=== PATIENT | female | born 1990 | race Caucasian/White ===

== ENCOUNTER 2017-10-06 06:31 | Day surgery (SDC) | payer OTHER ==
[2017-10-06] VITALS (9 sets, daily range): BP systolic 95–111; BP diastolic 45–70
[~2017-10-06] VITALS: Ht 157.5 cm; Wt 56.7 kg
[2017-10-06] MEDS ORDERED: ADDERAL20 MG ORAL (07:16)
[2017-10-06] MEDS ORDERED: CATAPRES0.2 MG ORAL (07:16)
[2017-10-06] MEDS ORDERED: ORTHO TRI-CYCL1 EAC1 PO (07:16)
--- NOTE | 2017-10-06 07:18 | Pre-Procedure Note/Attestation ---
Pre-Procedure Note/Attestation Complete Prior to Procedure Planned Procedure: not applicable Procedure Narrative: egd Indications for Procedure Pre-Operative Diagnosis: GERD Attestation I attest that I discussed the nature of the procedure; its benefits; risks and complications; and alternatives (and the risks and benefits of such alternatives ), prior to the procedure, with the patient (or the patient's legal sales account representative). I attest that, if there was a reasonable possibility of needing a blood transfusion, the patient (or the patient's legal sales account representative) was given the [facility] standardized written summary, pursuant to the [place] Blood Safety Act ([place] Health and Safety Code # 1645, as amended). I attest that I re-evaluated the patient just prior to the surgery and that there has been no change in the patient's H&P, except as documented below: YUAN MEYER Oct 06, 2017 07:18
--- NOTE | 2017-10-06 07:19 | Short Stay Surgery H&P ---
History of Present Illness History of Present Illness Chief Complaint gerd HPI Codie Hermosillo is a 27 year old female who was admitted on for GERD Patient History Allergies: Coded Allergies: No Known Allergies (Unverified , 10/06/17) PAST MEDICAL HISTORY: Past Surgeries: Social History: Medication History Scheduled Clonidine Hcl* (Catapres*), 0.2 MG ORAL BED, (Reported) Dextroamphetamine/Amphetamine (Adderall 20 mg Tablet), 20 MG ORAL , (Reported) Norgestimate-Ethinyl Estradiol (Ortho Tri-Cyclen Lo), 1 EACH PO DA, (Reported) Review of Systems Cardiovascular: Reports: no symptoms Respiratory: Reports: no symptoms Skeletal: Reports: no symptoms Gastrointestinal: Reports: no symptoms Genitourinary: Reports: no symptoms Neurologic: Reports: no symptoms Endocrine: Reports: no symptoms Hematologic: Reports: no symptoms Physical Exam Vital Signs Last Vital Signs Date Time Temp Pulse Resp B/P (MAP) Pulse Ox O2 Delivery O2 Flow Rate FiO2 10/06/17 07:04 97.9 64 20 95/45 97 Room Air Labs Laboratory Tests Test 10/06/17 06:40 Urine HCG, Qualitative Negative Skin: normal HENT: normal Heart: normal Lungs: normal Abdomen: normal Extremities: normal Plan Plan of Care egd Final Diagnosis: Attestation Are the patient's medical conditions optimized for surgery? Attestation Response: yes YUAN MEYER Oct 06, 2017 07:19
[2017-10-06] MEDS ORDERED: LR 1000ml ONE (07:40)
[2017-10-06] MEDS ORDERED: Propofol 200mg/20ml IV ONE (07:40)
[2017-10-06] MEDS ORDERED: Lidocaine 1% MPF 10mg/ml 5ml ONE (07:40)
--- NOTE | 2017-10-06 07:51 | Endoscopy Procedure Note ---
Endoscopy Procedure Note Indication for Procedure: GERD Procedures Performed: EGD Operative Findings/Diagnosis: GASTRITIS Specimen: yes Pt Tolerated Procedure Well: Yes Estimated Blood Loss: none Anesthesiologist: BECKY Anesthesia: MAC Implant(s) used?: No 50 yrs or older w/o bx or poly: Not Applicable 10yrs. F/U not recommended: Not Applicable YUAN MEYER Oct 06, 2017 07:51
--- NOTE | 2017-10-06 08:01 | Immediate Post-Op Evaluation ---
Immediate Post-Op Evalulation Immediate Post-Op Evalulation Procedure: egd Date of Evaluation: Oct 06, 2017 Time of Evaluation: 08:01 IV Fluids: 500 Blood Pressure Systolic: 105 Blood Pressure Diastolic: 70 Pulse Rate: 67 Respiratory Rate: 14 O2 Sat by Pulse Oximetry: 100 Temperature (Fahrenheit): 97.4 Pain Score (1-10): 0 Nausea: No Vomiting: No Complications none Patient Status: awake, reacts, patent Hydration Status: adequate Drug: none BECKY LONDONO CRNA Oct 06, 2017 08:01
--- NOTE | 2017-10-06 08:03 | Anethesia Preoperative Eval ---
Anesthesia Pre-op PMH/ROS General Date of Evaluation: Oct 06, 2017 Time of Evaluation: 07:40 Anesthesiologist: gamaliel ASA Score: ASA 2 Mallampati Score Class I : Soft palate, uvula, fauces, pillars visible Class II: Soft palate, uvula, fauces visible Class III: Soft palate, base of uvula visible Class IV: Only hard plate visible Mallampati Classification: Class II Surgeon: jayme Diagnosis: gerd Surgical Procedure: egd Anesthesia History: none Family History: no anesthesia problems Allergies: Coded Allergies: No Known Allergies (Unverified , 10/06/17) Medications: see eMAR Past Medical History Cardiovascular: Denies: HTN, CAD, PR, valve dz, arrhythmia, other Pulmonary: Denies: asthma, COPD, RUBY, other Gastrointestinal/Genitourinary: Reports: GERD Neurologic/Psychiatric: Denies: dementia, CVA, depression/anxiety, TIA, other Endocrine: Denies: DM, hypothyroidism, steroids, other HEENT: Denies: cataract (L), cataract (R), glaucoma, [place] (L), [place] (R), other Hematology/Immune: Denies: anemia, DVT, bleeding disorder, other Musculoskeletal/Integumentary: Denies: OA, RA, DJD, DDD, edema, other PSxH Narrative: nose surgery Anesthesia Pre-op Phys. Exam Physician Exam Last Vital Signs Date Time Temp Pulse Resp B/P (MAP) Pulse Ox O2 Delivery O2 Flow Rate FiO2 10/06/17 07:04 97.9 64 20 95/45 97 Room Air Constitutional: NAD Neurologic: CN 2-12 intact Cardiovascular: RRR Respiratory: CTA Gastrointestinal: S/NT/ND Airway Exam Mallampati Classification 2 Mallampati Score: Class II MO: full ROM: full Dentures: no upper, no lower Anesthesia Pre-op A/P Labs Urine Test Test 10/06/17 06:40 Urine HCG, Qualitative Negative Studies Pre-op Studies: EKG - sr Risk Assessment & Plan Plan: mac Status Change Before Surgery: No Pre-Antibiotics Drug: none BECKY LONDONO [employer] Oct 06, 2017 08:03
--- NOTE | 2017-10-06 08:53 | 48 Hour Post Anesthesia Eval ---
Post Anesthesia Evaluation Procedure: egd Date of Evaluation: Oct 06, 2017 Time of Evaluation: 08:53 Blood Pressure Systolic: 98 0: 64 Pulse Rate: 71 Respiratory Rate: 14 O2 Sat by Pulse Oximetry: 100 Airway: patent Nausea: No Vomiting: No Hydration Status: adequate Cardiopulmonary Status: stable Mental Status/LOC: patient returned to baseline Follow-up Care/Observations: na Post-Anesthesia Complications: none Follow-up care needed: N/A BECKY LONDONO CRNA Oct 06, 2017 08:53
--- NOTE | 2017-10-06 15:15 | Procedure Note ---
DATE OF PROCEDURE: 10/06/2017 SURGEON: Pablo Ponce M.D. PROCEDURE: Upper endoscopy with biopsy. ANESTHESIA: Per Claudia Mejia CRNA. INSTRUMENT: Olympus adult flexible upper endoscope. INDICATION: Chronic gastroesophageal reflux disease. REASON FOR PROCEDURE: The procedure, risks, benefits, and possible consequences, including hemorrhage, aspiration, perforation and infection, and alternative treatments, were explained to the patient/legal guardian by Dr. Pablo Ponce and the patient/legal guardian understood and accepted these risks. DESCRIPTION OF PROCEDURE: After informed consent was obtained and the patient was adequately sedated, Olympus upper endoscope was advanced from mouth into the second portion of duodenum and retroflexion was performed in the stomach. The patient had diffuse gastritis. Random biopsy from body and antrum was obtained to rule out H. pylori infection. The rest of the upper endoscopy examination was grossly within normal limits. No obvious ulceration. No obvious mass. No obvious erosion. No obvious hiatal hernia. No esophagitis. The patient tolerated the procedure well without any complication. SUMMARY OF FINDINGS: Mild diffuse gastritis status post biopsy, otherwise normal upper endoscopic examination. RECOMMENDATIONS: Follow up biopsies and treat accordingly. I want to thank Dr. Morocho for this kind referral. Pablo Ponce M.D. DR: TARUN JOB#: [id number] CC: Rosalinda Morocho M.D.; Fax#: [phone]
== END 2017-10-06 09:00 | disposition home or self-care (01) ==
LOC: GAS 06:31
DX: K21.9 Gastro-esophageal reflux disease without esophagitis (principal); K29.50 Unspecified chronic gastritis without bleeding
CPT/HCPCS: 43239; 81025; J2704; J7120; 94003; 94150